=== PATIENT | female | born 2000 | race Caucasian/White ===

== ENCOUNTER → 2020-10-08 | Outpatient (CLI) | payer BC, OTHER ==
[~2020-10-08] MED LIST: CLOBAZAM10 MG PO; CLOBAZAM20 MG PO; CLONAZEPAM 0.50.5 M1 PO; EPIDIOLEX100 MG/1 M; GABAPENTIN250 MG/51; IBUPROFEN 400400 M1 PO; LEVO-T75 MCG PO; NITROFURANTOIN PO; RISPERIDONE1 MG/1 M2 PO; TYLENOL EXTRA500 MG PO; ZOLOFT20 MG/1 ML PO
== END ==
LOC: LAB 11:19
PROVIDERS: ATTEND Ophthalmology
DX: Z01.812 Encounter for preprocedural laboratory examination (principal); Z20.828 Contact with and (suspected) exposure to other viral communicable diseases

== ENCOUNTER 2020-10-11 07:39 | Day surgery (SDC) | payer BC, OTHER ==
[~2020-10-11] VITALS: Ht 152.4 cm; Wt 50.8 kg
--- NOTE | ~2020-10-11 | O ---
[facility] [place] [address] OPERATIVE REPORT Name: CINDY BEYER Room #: 150-8 [facility] M.R.#: [id number] Admission: 10/11/20 Attend Phys: Ziggy Benitez MD Discharge: Date of : 00 Report #: [id number] THIS REPORT FOR: cc: DEUCE SHEPHERD MD [facility] - Family physician unknown Ziggy Benitez MD ~ CC: Sloan Chavez [facility] unknown DEUCE Benitez DATE OF SERVICE: 10/11/2020 PREOPERATIVE DIAGNOSIS: Bilateral nasolacrimal duct obstruction. POSTOPERATIVE DIAGNOSIS: Bilateral nasolacrimal duct obstruction. PROCEDURE: Bilateral endoscopic balloon dacryocystoplasty. SURGEON: Ziggy Benitez MD. CERTIFIED CONTROL SYSTEMS TECHNICIAN: None. ANESTHESIA: General. COMPLICATIONS: None. 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 This appears to be secondary to an incomplete nasolacrimal duct obstruction. She has presented today for a bilateral endoscopic balloon dilation procedure to attempt to establish better tear outflow. Informed consent was obtained to include but not limited to the potential risk for loss of vision, bleeding, infection, failure to improve the problem, the potential need for further surgery or treatment. The silicone tube was specifically not being placed during today's surgery in order to avoid the need to come back to the operating room to take it out. DESCRIPTION OF PROCEDURE: The patient was taken to the operating room where general anesthesia was administered. The right medial canthal area and the left medial canthal area were both anesthetized with Xylocaine with epinephrine mixed with Marcaine and Wydase. The nose was then packed with 2 Afrin-soaked cottonoids on each side. The patient was subsequently prepped and draped in the usual sterile fashion. She received intravenous Decadron at the beginning of the case to reduce her risk for nausea and reduce the swelling in the tract. [facility] [address] [place] [address] OPERATIVE REPORT Name: CINDY BEYER Room #: 150-8 [facility]..#: [id number] Admission: 10/11/20 Attend Phys: Ziggy Benitez MD Discharge: Date of : 00 Report #: [id number] After being sterilely prepped and draped, the superior and inferior puncta were dilated on the right side. A size 2 Seay probe was then passed through the common canaliculus down the nasolacrimal sac into the nasolacrimal duct where it popped through into the inferior meatus under the inferior turbinate. The cottonoids were removed from the nose and the nasal vault inspected. The Seay probe could be seen in the proper location. There was no significant nasal pathology seen. That Seay probe was withdrawn. A 3 mm x 15 mm lacricatheter was then lubricated with bacitracin ophthalmic ointment. It was then passed through the superior canaliculus down the common canaliculus through the lacrimal sac down the nasolacrimal duct into the atrial inferior meatus where it was confirmed video endoscopically to be in the proper location. That balloon was then inflated to 9 atmospheres for 90 seconds for 2 complete cycles at each of 3 different locations, ensuring that the entire duct was dilated. The balloon was then vigorously aspirated as it was withdrawn. The tract irrigated very well with BSS through the superior canalicular system. Attention was then turned to the left side, where the same procedure with the same findings were found. The tracts both irrigated well at the end of the case. Antibiotic steroid eyedrop was then placed on both eyes and the patient subsequently transported to the recovery area having tolerated the procedures well with no anesthetic or operative complications being noted. By: [id number] Ziggy Benitez MD /nt
[2020-10-11 08:57] VITALS: BP 103/64
== END 2020-10-11 10:40 | disposition home or self-care (01) ==
LOC: OR → TBA 07:39 → OR 10:40
PROVIDERS: ATTEND Ophthalmology
DX: H04.553 Acquired stenosis of bilateral nasolacrimal duct (principal); K21.9 Gastro-esophageal reflux disease without esophagitis; Z98.890 Other specified postprocedural states; Z79.899 Other long term (current) drug therapy; Z87.19 Personal history of other diseases of the digestive system; Z87.442 Personal history of urinary calculi
CPT/HCPCS: 50010; 50101; 50386; 50398; 62110; 62900; 64037; 70005